=== PATIENT | male | born 1950 | race African-American/Black ===

== ENCOUNTER 2018-01-07 17:45 | Emergency (ER) | payer OTHER ==
[2018-01-07] MEDS ORDERED: Ondansetron ODT 4 MG TAB ONE (17:59)
[2018-01-07] MEDS ORDERED: Ibuprofen 200 MG TAB ONE (18:45)
[2018-01-07] MEDS ORDERED: Sodium Chloride 0.9% 1,000 ML ONE ×2 (18:46→19:48)
[2018-01-07 19:05] LABS: #Basophils 0.1 thou/uL (0.0-0.2); #Lymphocytes 1.1 thou/uL (1.20-3.40); #Monocytes 0.6 thou/uL (0.11-0.59); #Neutrophils 9.1 thou/uL (1.40-6.50); %Basophils 1.2 % (0.0-1.0); %Eosinophils 0.1 % (0.0-10.0); %Lymphocytes 9.9 % (21.0-51.0); %Monocytes 5.9 % (0.0-10.0); %Neutrophils 82.8 % (42.0-75.0); Hemoglobin 11.4 g/dL (14.0-18.0); Mean Corpuscular HGB CONC 28.9 g/dL (32.0-36.0); Mean Corpuscular Hemoglobin 19.8 pg (27.0-31.0); Mean Corpuscular Volume 68.5 fl (80.0-94.0); Mean Platelet Volume 8.9 fL (7.4-10.4); Platelet Count 201 thou/uL (130-400); RBC Distribution Width 12.8 % (11.5-14.5); Red Blood Cell (RBC) Count 5.76 mill/uL (4.70-6.10); White Blood Cell (WBC) Count 10.9 thou/uL (4.8-10.8)
--- NOTE | 2018-01-07 19:05 | RAD ---
FRONTAL VIEW CHEST: CLINICAL HISTORY: Dizziness with nausea, headache, and myalgia. COMPARISON: None. FINDINGS: There is no lobar consolidation, or pneumothorax. Minimal blunting of the right lateral costophrenic sulcus is seen. No free air beneath the hemidiaphragms. The cardiac silhouette is accentuated by th e portable technique. A punctate radiopaque density overlies the left paramediastinal region. There are lobular hyperdensities in the right perihilar region, indicating granulomatous calcification. IMPRESSION: 1. No focal consolidation. 2. Minimal blunting of the right lateral costophrenic sulcus, which could relate to pleural thickeni ng. A component of trace pleural fluid is not excluded. POS: [facility]
[2018-01-07 19:08] LABS: ALT (SGPT) 19 U/L (8-55); AST (SGOT) 20 U/L (5-34); Albumin 4.2 g/dL (3.4-4.8); Alkaline Phosphatase 72 U/L (40-150); Anion Gap 15 mmol/L (10-20); BUN (Urea Nitrogen) 12 mg/dL (8.4-25.7); Bilirubin, Total 0.7 mg/dL (0.2-1.2); CK (CPK) 554 U/L (30-200); Calc. Creatinine Clearance 0 mL/min (70-130); Calcium 9.1 mg/dL (7.8-10.44); Carbon Dioxide 22 mmol/L (23-31); Chloride 103 mmol/L (98-107); Estimated GFR-MDRD 67; Globulin 3.4 g/dL (2.4-3.5); Glucose 132 mg/dL (80-115); Lipase 17 U/L (8-78); Protein, Total 7.6 g/dL (5.8-8.1); Sodium 136 mmol/L (136-145)
[2018-01-07 19:10] LABS: CKMB 0.5 ng/mL (0-6.6); Troponin I Less than 0.010 ng/mL (< 0.028)
[2018-01-07 19:25] LABS: Bilirubin Negative (Negative); Blood, Urine Negative (Negative); Clarity Clear (Clear); Glucose, Urine (Dipstick) Negative (Negative); Leukocyte Trace (Negative); Nitrite Negative (Negative); Protein, Urine (Dipstick) 30 mg/dL (Neg-Trace); Specific Gravity, Urine 1.015 (1.005-1.030); Urobilinogen > or = 8.0 mg/dL (0.2-1.0); pH, Urine 7.5 (5.0-9.0)
[2018-01-07 19:34] LABS: Bacteria/HPF 3+ HPF (None Seen); Squamous Epithelial 0-3 HPF (0-3)
[2018-01-07] MEDS ORDERED: Levofloxacin 500 mg/D5W 100 ml Premix Bag ONE (19:48)
== END 2018-01-07 20:50 | disposition home or self-care (01) ==
LOC: NAV ERS 17:45
DX: E86.0 Dehydration (principal); N39.0 Urinary tract infection, site not specified; E78.5 Hyperlipidemia, unspecified; Z87.891 Personal history of nicotine dependence
CPT/HCPCS: 71045; 80053; 81003; 81015; 82150; 82553; 83605; 83690; 84484; 85025; 87040; 87077; 87086; 87186; 87804; 93005; 96361; 96365; J1956; J7050; Q0162